=== PATIENT | female | born 1995 | race Caucasian/White ===

== ENCOUNTER 2019-04-17 04:47 | Emergency (ER) | payer MEDICAID ==
--- NOTE | 2019-04-17 05:45 | ED Physician Chart ---
ED Chief Complaint/HPI - Patient Information Date Seen:: 04/17/19 Time Seen:: 05:36 Chief Complaint:: abd pain History of Present Illness:: 23 yr old female with pain abd for one day no nvd or constipation no fever or dizziness or headache Allergies:: Allergies Allergy/AdvReac Type Severity Reaction Status Date / Time No Known Allergies Allergy Verified 04/17/19 05:12 Vitals:: Vital Signs - 8 hr 04/17/19 04:55 Temp 98.9 F HR 86 RR 19 BP 111/69 O2 Sat % 96 ED Review of Systems - Review of Systems General/Constitutional: No fever Skin: No skin lesions Eyes: No loss of vision ENT: No earache Neck: No neck pain Cardio Vascular: No chest pain Pulmonary: No SOB GI: No vomiting G/U: No dysuria Musculoskeletal: No bone or joint pain Endocrine: Polyuria Hematopoietic: No bruising Allergic/Immuno: No urticaria Neurological: No syncope ED Past Medical History - Past Medical History Past Medical History: No significant medical hx ED Physical Exam - Physical Examination General/Constitutional: Well-developed, well-nourished Head: Atraumatic Eyes: Lids, conjuctiva normal Skin: Nl inspection ENMT: External ears, nose nl Neck: Nontender Respiratory: Nl effort/Exclusion Cardio Vascular: RRR Other GI comments:: abd tenderness no perioteneal signs or rebound : No CVA tenderness Extremities: No tenderness or effusion Neuro/Psych: Alert/oriented ED Assessment - Assessment General Assessment: abd pain ED Septic Shock - . Is Septic Shock (SBP<90, OR Lactate>4 mmol\L) present?: No - <6hrs of presentation: Vital Signs: Vital Signs - 8 hr 04/17/19 04:55 Temp 98.9 F HR 86 RR 19 BP 111/69 O2 Sat % 96 ED Reassessment (Disposition) - Reassessment Reassessment:: abd pain - Diagnosis Diagnosis:: abd pain - Aftercare/Follow up Instructions Aftercare/Follow-Up Instructions:: Counseled pt regarding lab results/diagnosis & need follow up - Patient Disposition Discharge/Transfer:: Home Condition at Disposition:: Stable
[2019-04-17] MEDS ORDERED: Maalox 30 mL Cup PO ONE (05:49)
[2019-04-17] MEDS ORDERED: Maalox 30 mL Cup ONE (05:53)
[2019-04-17 05:56] LABS: % BASOPHILS 0.6 % (0.0-2.0); % EOSINOPHILS 2.8 % (0.0-5.0); % LYMPHOCYTES 26.2 % (20.0-50.0); % MONOCYTES 11.7 % (2.0-10.0); % NEUTROPHILS 58.7 % (40.0-80.0); BASOPHILE ABSOLUTE 0.1 Th/cumm (0-0.2); EOSINOPHILE ABSOLUTE 0.3 Th/cmm (0.1-0.4); HEMATOCRIT 38.9 % (41.0-60); HEMOGLOBIN 13.4 gm/dL (12-16); LYMPHOCYTE ABSOLUTE 2.5 Th/cmm (1.5-3.0); MEAN CELL VOLUME 92.7 fl (81-100); MEAN CORPUSCULAR HEMOGLOBIN 31.9 pg (27.0-31.0); MEAN CORPUSCULAR HGB CONC 34.4 pg (28.0-36.0); MONOCYTE ABSOLUTE 1.1 Th/cmm (0.3-1.0); NEUTROPHILE ABSOLUTE 5.6 Th/cmm (1.8-8.0); PLATELET COUNT 290 Th/cmm (150-400); RED CELL DISTRIBUTION WIDTH 12.4 % (11.5-20.0); WHITE BLOOD COUNT 9.6 Th/cmm (4.8-10.8)
[2019-04-17 06:06] LABS: URINE SOURCE RANDOM
[2019-04-17 06:11] LABS: URINE BILIRUBIN NEGATIVE (NEGATIVE); URINE BLOOD NEGATIVE (NEGATIVE); URINE GLUCOSE (UA) NEGATIVE (NEGATIVE); URINE KETONE TRACE mg/dL (NEGATIVE); URINE LEUKOCYTE ESTERASE NEGATIVE (NEGATIVE); URINE NITRATE NEGATIVE (NEGATIVE); URINE PH 5.5 (4.6 - 8.0); URINE PROTEIN NEGATIVE (NEGATIVE); URINE UROBILINOGEN 0.2 E.U./dL (0.2 - 1.0)
[2019-04-17 06:13] LABS: URINE CLARITY CLEAR (CLEAR); URINE COLOR YELLOW; URINE MICROSCOPIC INDICATED? NO
[2019-04-17 06:16] LABS: ALB/GLOB RATIO 1.5 (1.0-1.8); ALBUMIN 4.1 gm/dL (3.7-5.3); ALKALINE PHOSPHATASE 82 U/L (34-104); AMYLASE SERUM 24 U/L (29-103); ANION GAP 9.7 (7.0-16.0); BILIRUBIN,TOTAL 0.4 mg/dL (0.3-1.0); BUN - UREA NITROGEN 14 mg/dL (7-25); CALCIUM SERUM 9.6 mg/dL (8.6-10.3); CARBON DIOXIDE 28.7 mEq/L (21.0-31.0); CHLORIDE 98 mEq/L (98-107); CREATININE - SERUM 0.7 mg/dL (0.6-1.2); GFR AFRICAN-AMERICAN > 60.0 ml/min (>90); GFR NON AFRICAN-AMERICAN > 60.0 ml/min; GLUCOSE 108 mg/dL (70-105); LIPASE 18 U/L (11-82); POTASSIUM SERUM 3.4 mEq/L (3.5-5.1); SGOT 18 U/L (13-39); SGPT/ALT 11 U/L (7-52); SODIUM SERUM 133 mEq/L (136-145); TOTAL PROTEIN,SERUM 6.9 gm/dL (6.0-8.3)
[2019-04-17] MEDS ORDERED: Morphine Sulfate 2 mg/mL 1mL Syr IM STA (06:56)
[2019-04-17] MEDS ORDERED: Morphine Sulfate 2 mg/mL 1mL Syr ONE (07:00)
--- NOTE | 2019-04-17 08:31 | Diagnostic Imaging Report ---
CT scan abdomen and pelvis without intravenous contrast HISTORY: Pain Total DLP equals 584 CTDI equals 11.2 Axial sections were obtained from the xiphoid process down to the pubic symphysis. The liver exhibits a normal size and contour. No focal lesions. The spleen appears normal. No focal amenities seen within the pancreas. No focal renal lesions. No hydronephrosis. The exam of the pelvis demonstrates preservation of normal fat planes. Right adnexal fullness with hypodensity most likely associated with ovarian follicular changes. No other abnormal masses. No free fluid. No bowel dilatation. The appendix is not clearly delineated. No definite abnormalities within the right lower quadrant. IMPRESSION: 1. Mild right adnexal fullness with hypodensity probably related to ovarian follicular changes 2. No other significant abnormalities
== END 2019-04-17 09:05 | disposition home or self-care (01) ==
LOC: ER 04:47
DX: R10.9 Unspecified abdominal pain (principal)
CPT/HCPCS: 99284; 96372 ×2; 74176; 36415; 85025; 81003; 82150; 81025; 83690; 80053; J2270; J1885